=== PATIENT | female | born 1970 | race Hispanic/Latino ===

== ENCOUNTER 2017-05-14 18:07 | Emergency (ER) | payer MEDICAID, OTHER ==
[2017-05-14 18:07] VITALS: BMI 23.8
[2017-05-14 18:13] VITALS: RESP 18
--- NOTE | 2017-05-14 19:10 | C.PDOC ---
History Of Present Illness 46F comes in requesting detox from multiple substances: heroin, pcp, alcohol, cocaine, meth. when I let her know that are detox unit is full she says she is suicidal. hx of cutting and also plan of overdose on meds. Time Seen by Provider: 05/14/17 19:07 Chief Complaint (Nursing): Substance Abuse Past Medical History Vital Signs: Last Vital Signs Temp 98.8 F 05/14/17 18:10 Pulse 89 05/14/17 18:10 Resp 18 05/14/17 18:10 BP 137/80 05/14/17 18:10 Pulse Ox 98 05/14/17 20:28 - Medical History PMH: Anxiety, Asthma, Bipolar Disorder, Depression, Migraine, Mitral Valve Prolapse, Schizophrenia Denies: Diabetes, Hepatitis, HIV, HTN, Chronic Kidney Disease, Seizures, Sexually Transmitted Disease - [facility] Procedures APPLICATION OF SPLINT (04/21/14) ARTIF RUPT MEMBRANES NEC (04/09/99) CLOSURE SKIN & SUBCUTANEOUS NEC (04/21/14) DIATHER/CRYO TURBINECTOM (05/14/02) DPT ADMINISTRATION (04/21/14) IMMOBILIZ/WOUND ATTN NEC (08/12/14) INJECT/INFUSE NEC (06/16/15) LYSIS OF NASAL ADHESIONS (05/14/02) MANUAL ASSIST DELIV NEC (04/09/99) NASAL REPAIR NEC (12/18/00) NEBULIZER THERAPY (06/16/15) OPEN REDUCTION NASAL FX (12/18/00) RHINOPLASTY NEC (05/31/99) SEPTOPLASTY NEC (05/14/02) SUBMUC NASAL SEPT RESECT (12/18/00) TETANUS TOXOID ADMINIST (05/28/07) TURBINECTOMY NEC (04/28/98) Family History: States: Other Other Family History: nc - Social History Hx Tobacco Use: Yes Hx Alcohol Use: Yes Hx Substance Use: Yes (Stopped) - Immunization History Hx Tetanus Toxoid Vaccination: No Hx Influenza Vaccination: No Hx Pneumococcal Vaccination: No Review Of Systems Except As Marked, All Systems Reviewed And Found Negative. Constitutional: Negative for: Fever, Chills Cardiovascular: Negative for: Chest Pain Respiratory: Negative for: Cough, Shortness of Breath Gastrointestinal: Negative for: Vomiting, Abdominal Pain Neurological: Negative for: Weakness, Numbness Psych: Positive for: Anxiety, Depression, Suicidal ideation Physical Exam - Physical Exam Appears: Non-toxic, No Acute Distress Skin: Warm, Dry Head: Atraumatic Eye(s): bilateral: PERRL Nose: No Epistaxis Oral Mucosa: Moist Lips: No Swelling Cardiovascular: Rhythm Regular Respiratory: No Accessory Muscle Use, No Stridor Gastrointestinal/Abdominal: Soft, No Tenderness Neurological/Psych: Oriented x3, Other (no focal deficits) ED Course And Treatment - Laboratory Results Result Diagrams: 05/14/17 19:37 05/14/17 19:37 O2 Sat by Pulse Oximetry: 98 Medical Decision Making Medical Decision Making: EKG: NSR 70 normal axis and intervals, no acute STEMI 2024 per psych service pt is cleared for dc [address] Gillespie- he is aware of statements pt made to me. he is familiar with the pt and is comfortable w her being dc, she can likely get a detox bed tomorrow and the pt is agreeable to this plan. Disposition - Disposition Disposition: HOME/ ROUTINE Disposition Time: 20:32 Condition: STABLE - Clinical Impression Clinical Impression: Drug abuse
[2017-05-14 19:47] LABS: BASO # 0.1 K/uL (0.0-0.2); BASO % 0.9 % (0.0-2.0); EOS # 0.1 K/uL (0.0-0.7); EOS % 1.7 % (0.0-4.0); HEMOGLOBIN 11.4 g/dL (11.0-16.0); LYMPH # 2.6 K/uL (1.0-4.3); LYMPH % 37.2 % (20.0-40.0); MEAN CORPUSCULAR HEMOGLOBIN 23.6 pg (27.0-31.0); MEAN CORPUSCULAR HGB CONC 31.4 g/dL (33.0-37.0); MEAN PLATELET VOLUME 8.2 fL (7.2-11.7); MONO # 0.6 K/uL (0.0-0.8); MONO % 8.4 % (0.0-10.0); NEUT # 3.6 K/uL (1.8-7.0); NEUT % 51.8 % (50.0-75.0); NRBC % 0.1 % (0.0-2.0); RBC 4.84 Mil/uL (3.80-5.20); RED CELL DISTRIBUTION WIDTH 18.7 % (11.5-14.5); WHITE BLOOD COUNT 6.9 K/uL (4.8-10.8)
[2017-05-14 19:51] LABS: ALBUMIN 4.2 g/dL (3.5-5.0)
[2017-05-14 19:53] LABS: GFR AFRICAN-AMERICAN > 60; GFR NON-AFRICAN AMERICAN > 60
[2017-05-14 19:54] LABS: ALB/GLOB RATIO 1.3 (1.0-2.1); ALT/SGPT 34 U/L (9-52); AST/SGOT 28 U/L (14-36); BLOOD UREA NITROGEN 8 mg/dL (7-17); CALCIUM 9.4 mg/dl (8.6-10.4)
[2017-05-14 19:55] LABS: SALICYLATE < 1.0 mg/dL 1
[2017-05-14 19:56] LABS: ACETAMINOPHEN < 10.0 ug/mL (10.0-30.0)
[2017-05-14 20:00] LABS: BARBITURATES, UR NEGATIVE (NEGATIVE); BENZODIAZEPINES, UR NEGATIVE (NEGATIVE)
[2017-05-14 20:03] LABS: PHENCYCLIDINE, UR NEGATIVE (NEGATIVE)
[2017-05-14 20:09] LABS: SQUAMOUS EPITHIAL 1 /hpf (0-5); URINE BACTERIA OCC (<OCC); URINE BILIRUBIN NEGATIVE (NEGATIVE); URINE BLOOD NEGATIVE (NEGATIVE); URINE CLARITY Clear (Clear); URINE COLOR Yellow (YELLOW); URINE GLUCOSE (UA) NORMAL (Normal); URINE LEUKOCYTE ESTERASE 1+ Leu/uL (Negative); URINE NITRATE NEGATIVE (NEGATIVE); URINE PROTEIN NEGATIVE (NEGATIVE); URINE UROBILINOGEN NORMAL mg/dL (0.2-1.0)
[2017-05-14 20:11] LABS: HCG,QUALITATIVE URINE NEGATIVE (NEGATIVE)
[2017-05-14 20:22] LABS: OPIATES, UR POSITIVE (NEGATIVE)
[2017-05-14 20:39] VITALS: BP 163/84; PULSE 97; TEMP 97.8; O2SAT 95
--- NOTE | 2017-05-15 08:12 | RAD ---
PROCEDURE: CHEST RADIOGRAPH, 1 VIEW HISTORY: Detox/Psy COMPARISON: None available. FINDINGS: LUNGS: Mild venous congestion. PLEURA: No pneumothorax or pleural fluid seen. CARDIOVASCULAR: Normal. OSSEOUS STRUCTURES: No significant abnormalities. VISUALIZED UPPER ABDOMEN: Normal. OTHER FINDINGS: None. IMPRESSION: Mild venous congestion.
--- NOTE | 2017-05-16 15:48 | CARD ---
APPROVED REPORT EKG Measurement Heart [id number] <Conclusion> Normal sinus rhythm Poor R wave progression. Borderline ECG
== END 2017-05-14 20:54 | disposition home or self-care (01) ==
LOC: C.ER 18:07
DX: F19.10 Other psychoactive substance abuse, uncomplicated (principal); F10.10 Alcohol abuse, uncomplicated; Y90.2 Blood alcohol level of 40-59 mg/100 ml

== ENCOUNTER 2017-05-15 07:12 | Emergency (ER) | payer OTHER ==
[2017-05-15 07:17] VITALS: BMI 26.1
[2017-05-15 07:18] VITALS: BP 126/81; PULSE 82; RESP 18; TEMP 98.3; O2SAT 99
--- NOTE | 2017-05-15 07:36 | C.PDOC ---
History Of Present Illness 46 y/o female presents to ED requesting detox from multiple substances. Pt was here yesterday for the same, no detox beds were available, she was instructed to return today. Denies any SI, HI, chest pain, SOB, vomiting or any other complaints. Time Seen by Provider: 05/15/17 07:14 Chief Complaint (Nursing): Substance Abuse History Per: Patient History/Exam Limitations: no limitations Suicide/Self Injury Attempted (Context): None Severity: Mild Associated Symptoms: denies: Suicidal Thoughts Involuntary Hold By: None Recent travel outside of the [place]: No Past Medical History Reviewed: Historical Data, Nursing Documentation, Vital Signs Vital Signs: Last Vital Signs Temp 98.3 F 05/15/17 07:17 Pulse 82 05/15/17 07:17 Resp 18 05/15/17 07:17 BP 126/81 05/15/17 07:17 Pulse Ox 99 05/15/17 07:38 - Medical History PMH: Anxiety, Asthma, Bipolar Disorder, Depression, Migraine, Mitral Valve Prolapse, Schizophrenia - [facility] Procedures APPLICATION OF SPLINT (04/21/14) ARTIF RUPT MEMBRANES NEC (04/09/99) CLOSURE SKIN & SUBCUTANEOUS NEC (04/21/14) DIATHER/CRYO TURBINECTOM (05/14/02) DPT ADMINISTRATION (04/21/14) IMMOBILIZ/WOUND ATTN NEC (08/12/14) INJECT/INFUSE NEC (06/16/15) LYSIS OF NASAL ADHESIONS (05/14/02) MANUAL ASSIST DELIV NEC (04/09/99) NASAL REPAIR NEC (12/18/00) NEBULIZER THERAPY (06/16/15) OPEN REDUCTION NASAL FX (12/18/00) RHINOPLASTY NEC (05/31/99) SEPTOPLASTY NEC (05/14/02) SUBMUC NASAL SEPT RESECT (12/18/00) TETANUS TOXOID ADMINIST (05/28/07) TURBINECTOMY NEC (04/28/98) Family History: States: Unknown Family Hx - Social History Hx Tobacco Use: Yes Hx Alcohol Use: Yes Hx Substance Use: Yes (Stopped) - Immunization History Hx Tetanus Toxoid Vaccination: No Hx Influenza Vaccination: No Hx Pneumococcal Vaccination: No Review Of Systems Except As Marked, All Systems Reviewed And Found Negative. Constitutional: Negative for: Fever Cardiovascular: Negative for: Chest Pain Respiratory: Negative for: Shortness of Breath Gastrointestinal: Negative for: Vomiting Psych: Negative for: Suicidal ideation Physical Exam - Physical Exam Appears: Non-toxic, No Acute Distress Skin: Warm, Dry, No Rash Head: Atraumatic, Normacephalic Neck: Normal, Normal ROM Chest: Symmetrical Cardiovascular: Rhythm Regular, No Murmur Respiratory: Normal Breath Sounds, No Rales, No Rhonchi, No Wheezing Gastrointestinal/Abdominal: Normal Exam, Soft, No Tenderness Extremity: Bilateral: Atraumatic Neurological/Psych: Oriented x3, Normal Speech ED Course And Treatment O2 Sat by Pulse Oximetry: 99 (room air) Pulse Ox Interpretation: Normal Progress Note: No detox beds available at this time. CRISIS will speak to patient. Case discused and patient given outpatient information by Crisis department. Reassessment Condition: Unchanged Disposition - Disposition Referrals: Alcoholics Anonymous [Outside] [facility] [Outside] [facility] [Outside] [facility] [Outside] Disposition: HOME/ ROUTINE Disposition Time: 08:00 Condition: STABLE Instructions: Polysubstance Abuse (ED) - POA Present On Arrival: None - Clinical Impression Clinical Impression: Drug abuse, Alcohol abuse - PA / ICU REGISTERED NURSE / Resident Statement MD/DO has reviewed & agrees with the documentation as recorded. - Scribe Statement The provider has reviewed the documentation as recorded by the Scribcarlos Melchor All medical record entries made by the Scribe were at my direction and personally dictated by me. I have reviewed the chart and agree that the record accurately reflects my personal performance of the history, physical exam, medical decision making, and the department course for this patient. I have also personally directed, reviewed, and agree with the discharge instructions and disposition.
== END 2017-05-15 08:10 | disposition home or self-care (01) ==
LOC: C.ER 07:12
DX: F19.10 Other psychoactive substance abuse, uncomplicated (principal); F10.10 Alcohol abuse, uncomplicated; Y90.9 Presence of alcohol in blood, level not specified

== ENCOUNTER 2017-05-17 11:37 | Inpatient (IN) | payer MEDICAID, OTHER ==
[2017-05-17 11:38] VITALS: BMI 26.1
--- NOTE | 2017-05-17 11:59 | C.PDOC ---
History Of Present Illness 46 y/o FEMALE PRESENTS TO ED FOR POLYSUBSTANCE DETOX: HEROIN, COCAINE, AND METH. PT PRESCREENED DATA ENTRY ANALYST. DISCHARGED AT 7PM LAST NIGHT AND UPON BEING TOLD THERE WERE NO BEDS, CITED SUICIDAL IDEATION. CLEARED FOR DISCHARGE LAST NIGHT AND ADVISED TO RETURN TODAY FOR DETOX. PT STATES SHE HAD A DRINK AND SOME MORPHINE AT 0700 TODAY, DENIES ANY OTHER DRUG USE TODAY. CURRENTLY ASYMPTOTIC. Time Seen by Provider: 05/17/17 11:55 Chief Complaint (Nursing): Substance Abuse History Per: Patient History/Exam Limitations: no limitations Current Symptoms Are (Timing): Still Present Modifying Factor(s): Narcotics, Cocaine Recent travel outside of the [place]: No Past Medical History Reviewed: Historical Data, Nursing Documentation, Vital Signs Vital Signs: Last Vital Signs Temp 98.4 F 05/17/17 11:40 Pulse 87 05/17/17 11:40 Resp 18 05/17/17 11:40 BP 129/81 05/17/17 11:40 Pulse Ox 96 05/17/17 13:40 - Medical History PMH: Anxiety, Asthma, Bipolar Disorder, Depression, Migraine, Mitral Valve Prolapse, Schizophrenia - [facility] Procedures APPLICATION OF SPLINT (04/21/14) ARTIF RUPT MEMBRANES NEC (04/09/99) CLOSURE SKIN & SUBCUTANEOUS NEC (04/21/14) DIATHER/CRYO TURBINECTOM (05/14/02) DPT ADMINISTRATION (04/21/14) IMMOBILIZ/WOUND ATTN NEC (08/12/14) INJECT/INFUSE NEC (06/16/15) LYSIS OF NASAL ADHESIONS (05/14/02) MANUAL ASSIST DELIV NEC (04/09/99) NASAL REPAIR NEC (12/18/00) NEBULIZER THERAPY (06/16/15) OPEN REDUCTION NASAL FX (12/18/00) RHINOPLASTY NEC (05/31/99) SEPTOPLASTY NEC (05/14/02) SUBMUC NASAL SEPT RESECT (12/18/00) TETANUS TOXOID ADMINIST (05/28/07) TURBINECTOMY NEC (04/28/98) Family History: States: Unknown Family Hx - Social History Hx Tobacco Use: Yes Hx Alcohol Use: Yes Hx Substance Use: Yes (Stopped) - Immunization History Hx Tetanus Toxoid Vaccination: No Hx Influenza Vaccination: No Hx Pneumococcal Vaccination: No Review Of Systems Constitutional: Negative for: Fever, Chills Cardiovascular: Negative for: Chest Pain Respiratory: Negative for: Cough, Shortness of Breath Gastrointestinal: Negative for: Vomiting, Diarrhea Skin: Negative for: Rash Psych: Negative for: Suicidal ideation, Withdrawal Physical Exam - Physical Exam Appears: Non-toxic, No Acute Distress, Other (NO ACUTE WD OR INTOX SYMPTOMS) Skin: Normal Color, Warm, Dry Head: Atraumatic, Normacephalic Oral Mucosa: Moist Neck: Supple Chest: Symmetrical Cardiovascular: Rhythm Regular Respiratory: Normal Breath Sounds, No Rales, No Rhonchi, No Wheezing Gastrointestinal/Abdominal: Soft, No Tenderness, No Guarding, No Rebound Back: Normal Inspection Extremity: Normal ROM, Capillary Refill (< 2SEC. ) Neurological/Psych: Oriented x3, Normal Speech, Normal Cognition ED Course And Treatment - Laboratory Results Result Diagrams: 05/17/17 12:52 05/17/17 12:52 O2 Sat by Pulse Oximetry: 96 (RA) Pulse Ox Interpretation: Normal Progress - Re-Evaluation Re-evaluation Note: 05/17/17 13:40 MED CLEAR FOR PSYCH EVAL - Data Reviewed Data Reviewed: Lab, Old records Disposition - Disposition Disposition: HOSPITALIZED Disposition Time: 14:17 Condition: STABLE - POA Present On Arrival: None - Clinical Impression Clinical Impression: Severe opioid dependence - Scribe Statement The provider has reviewed the documentation as recorded by the [place] [place] Attestation: All medical record entries made by the Scribe were at my direction and personally dictated by me. I have reviewed the chart and agree that the record accurately reflects my personal performance of the history, physical exam, medical decision making, and the department course for this patient. I have also personally directed, reviewed, and agree with the discharge instructions and disposition. Decision To Admit - Pt Status Changed To: Hospital Disposition Of: Inpatient - Admit Certification Admit to Inpatient:: After my assessment, the patient will require hospitalization for at least two midnights. This is because of the severity of symptoms shown, intensity of services needed, and/or the medical risk in this patient being treated as an outpatient. - InPatient: Physician Admission Certification: I certify that this patient requires 2 or more midnights of care for the following reason:: SEE NOTE - . Bed Request Type: Psychiatry Admitting Physician: Gita Gillespie Patient Diagnosis: Severe opioid dependence
[2017-05-17 12:57] LABS: BASO # 0.1 K/uL (0.0-0.2); BASO % 0.7 % (0.0-2.0); EOS # 0.1 K/uL (0.0-0.7); EOS % 1.3 % (0.0-4.0); HEMOGLOBIN 11.4 g/dL (11.0-16.0); LYMPH # 2.1 K/uL (1.0-4.3); LYMPH % 26.9 % (20.0-40.0); MEAN CELL VOLUME 75.3 fL (81.0-99.0); MEAN CORPUSCULAR HEMOGLOBIN 24.3 pg (27.0-31.0); MEAN CORPUSCULAR HGB CONC 32.3 g/dL (33.0-37.0); MEAN PLATELET VOLUME 7.8 fL (7.2-11.7); MONO # 0.4 K/uL (0.0-0.8); MONO % 4.7 % (0.0-10.0); NEUT # 5.2 K/uL (1.8-7.0); NEUT % 66.4 % (50.0-75.0); RBC 4.68 Mil/uL (3.80-5.20); RED CELL DISTRIBUTION WIDTH 18.8 % (11.5-14.5); WHITE BLOOD COUNT 7.8 K/uL (4.8-10.8)
[2017-05-17 13:04] LABS: SQUAMOUS EPITHIAL 2 /hpf (0-5); URINE BACTERIA OCC (<OCC); URINE BILIRUBIN NEGATIVE (NEGATIVE); URINE BLOOD NEGATIVE (NEGATIVE); URINE CLARITY Clear (Clear); URINE COLOR Yellow (YELLOW); URINE GLUCOSE (UA) NORMAL (Normal); URINE LEUKOCYTE ESTERASE NEG Leu/uL (Negative); URINE NITRATE NEGATIVE (NEGATIVE); URINE PROTEIN NEGATIVE (NEGATIVE); URINE UROBILINOGEN NORMAL mg/dL (0.2-1.0)
[2017-05-17 13:05] LABS: ALBUMIN 3.9 g/dL (3.5-5.0)
[2017-05-17 13:08] LABS: ALB/GLOB RATIO 1.3 (1.0-2.1); ALT/SGPT 30 U/L (9-52); AST/SGOT 22 U/L (14-36); BLOOD UREA NITROGEN 4 mg/dL (7-17); CALCIUM 8.7 mg/dl (8.6-10.4); GFR AFRICAN-AMERICAN > 60; GFR NON-AFRICAN AMERICAN > 60
[2017-05-17 13:09] LABS: BENZODIAZEPINES, UR NEGATIVE (NEGATIVE)
[2017-05-17 13:11] LABS: BARBITURATES, UR NEGATIVE (NEGATIVE)
[2017-05-17 13:13] LABS: OPIATES, UR NEGATIVE (NEGATIVE)
[2017-05-17 13:14] LABS: PHENCYCLIDINE, UR NEGATIVE (NEGATIVE)
[2017-05-17] MEDS ORDERED: Aluminum Hydroxide/Magnesium Hydroxide Susp (30 mL) PO PRN (14:32)
--- NOTE | 2017-05-17 16:48 | PCM.BM ---
<María Elena Strauss M - Last Filed: 05/17/17 16:45> Treatment Plan Problems - Problems identified on initial assessmt Polysubstance Addiction Date Initiated: 05/17/17 Time Initiated: 16:45 Assessment reference: NA Status: Active Treatment assets and liabiliti Patient Assests: ADL independent Patient Liabilities: live alone, substance abuse, legal issue - Milieu Protocol Maintain good personal hygiene: daily Encourage regular showers, daily Remind patient to perform daily oral care, daily Assist patient to perform ADL's (PRN) Maintain personal safety: every shift Educate patient to report safety concerns to staff, every shift Monitor environment for contraband/sharps Medication safety: Monitor for expected outcome, potential side effects: every shift, Assess barriers to learning: every shift, Assess readiness for medication education: every shift <Sadia Yanez - Last Filed: 05/19/17 10:38> Family Contact Family involvement: Family/SO is involved Family contact: Patient agrees to contact Family contact name: Yolanda Wheeler Family contacted how many times per week?: 1 Family contact comment: "I wanna bring my sister in some clothes and help with her aftercare". - Goals for Treatment Patient goals for treatment: Complete ASI. DIscuss aftercare request of LTR. Coordinate with DCPP. Patient's family/SO goals for treatment: See patient transition to LTR. Discharge/Continuing Care - Education Needs Education Needs: Patient Diagnosis/Disease Process, Patient Coping Skills, Patient Placement options, Patient Community resources - Discharge Discharge Criteria: Tolerates medication w/o severe side effects, Normal sleep pattern, No longer exhibiting s/s of withdrawal, Reduction of target symptoms Discharge to:: Substance Abuse Rehab - Treatment Team Participation Patient/Family/SO Statement: 05/19/17 10:37 "I wanna go to rehab for at least 3 months. Anything else is just a band-aid for me..." Discussed with Family/SO: Yes Was Patient/Family/SO present at Treatment Team Meeting: Yes
--- NOTE | 2017-05-18 09:01 | PCM.PSYCH ---
Initial Psychiatric Evaluation - Initial Psychiatric Evaluation Type of Admission: Voluntary Legal Status: Capacity Chief Complaint (in patient's own words): I came in to get help.' History of Present Illness and Precipitating Events: Patient is a 46 years old HF, who currently lives alone, on SSI with the history of opiate abuse, cocaine abuse, Xanax abuse and bipolar disorder came to the ED to get help in heroin detox. As per the patient she was sober for 13 and half years, until last year when her parents were killed in a road accident. Pt became increasingly irritable and relapsed on cocaine, heroin and Xanax. She started injecting 6-10 bags of heroin, $60-100 dollars of cocaine and 2-4 mg of Xanax. Yesterday she injected almost 7 bags of heroin, and $30 of cocaine, started developing withdrawal symptoms so came to the to get help in detox. Patient reports withdrawal symptoms, i.e, headache, anxiety, nausea, abdominal cramps, joint pains and sweating. Patient reports irritability and anxiety but denies any feelings of hopelessness or helplessness, denies any suicidal ideation or homicidal ideation. She denies any hallucinations, delusions or any psychotic symptoms. She reports agitation but denies any manic symptoms. She denies any other substance abuse. Past medical history: Asthma Past psychiatric history: Patient denies any history of inpatient psychiatric hospitalizations but reports history of follow-up with a psychiatrist at [facility] in the past. Patient denies any history of suicidal ideation or suicidal attempt but reports a long history of superficial cuts in the past. Patient reports history of auditory and visual hallucinations in the past Current Medications: Active Medications Generic Name Dose Route Start Last Admin Trade Name Freq PRN Reason Stop Dose Admin Al Hydrox/Mg Hydrox/Simethicone 30 ml 05/17/17 14:32 Maalox 30 Ml PO TID PRN Indigestion / Heartburn Albuterol 1 puff 05/17/17 14:30 Ventolin Hfa 90 Mcg/Actuation (8 G) INH RQ4 PRN SOB Clonidine HCl 0.1 mg 05/17/17 14:32 Catapres PO Q8 PRN COWS Score More or Equal to 5 Gabapentin 100 mg 05/17/17 18:00 05/17/17 18:45 Neurontin PO 100 mg TID CLEMENTE Administration Hydroxyzine HCl 50 mg 05/17/17 14:30 05/17/17 18:45 Atarax PO 50 mg Q6H PRN Administration Anxiety Ibuprofen 600 mg 05/17/17 14:30 Motrin Tab PO Q6H PRN Pain, moderate (4-7) Loperamide HCl 2 mg 05/17/17 14:32 Imodium PO Q8 PRN Diarrhea Ondansetron HCl 4 mg 05/17/17 14:32 Zofran Tab PO Q8 PRN Nausea/Vomiting Trazodone HCl 100 mg 05/17/17 22:00 05/17/17 21:44 Desyrel PO 100 mg HS CLEMENTE Administration Past Psychiatric History - Past Psychiatric History Previous Treatment History: Inpatient Pertinent Medical Hx (Current Medical&Sleep Prob, Allergies): Allergies Allergy/AdvReac Type Severity Reaction Status Date / Time Penicillins AdvReac ITCHING Verified 05/17/17 11:40 Albuterol HFA [Ventolin HFA 90 mcg/actuation (8 g)] 05/17/17 Methylphenidate HCl [Ritalin] 20 mg PO TID 05/17/17 Prilosec Otc 05/17/17 traZODone [trazodone Hydrochloride] 2 tab PO DAILY 05/17/17 Review of Systems - Review of Systems All systems: reviewed and no additional remarkable complaints except - Psychiatric Psychiatric: Anxiety, Irritability. absent: Suicidal Ideation Mental Status Examination - Personal Presentation Personal Presentation: Looks stated age - Affect Affect: Constricted - Motor Activity Motor Activity: Calm - Reliability in Providing Information Reliability in Providing Information: Good - Speech Speech: Organized - Mood Mood: Anxious - Formal Thought Process Formal Thought Process: No Impairment - Obsessions/Compulsions Obsessions: No Compulsions: No - Cognitive Functions Orientation: Person, Place, Situation, Time Sensorium: Alert Attention/Concentration: Attentive Abstract Thinking: [place] Estimate of Intelligence: Below average Judgement: Imparied, as evidence by: Poor judgement, Intact, as evidence by: Insight regarding need for hospitalization - Risk Risk: Withdrawal, Diminished functioning - Strength & Assets Inventory Strength & Assets Inventory: Cooperative DSM 5 DX - DSM 5 DSM 5 Diagnosis: Opioid use disorder severe Opioid withdrawal Sedative/Hypnotics use moderate Cocaine use disorder severe Bipolar disorder - Recommended/Plan of Treatment Treatment Recommendations and Plan of Treatment: Opioid use disorder severe CBT Psychoeducation Supportive therapy, individual therapy Use [place] for abstinence Opioid withdrawal CBT Psychoeducation Supportive therapy, individual therapy Clonidine when necessary Methadone taper Sedative/Hypnotics use moderate CBT Psychoeducation Supportive therapy, individual therapy Use [place] for abstinence Cocaine use disorder severe Monitor signs and symptoms Use [place] for abstinence Bipolar disorder CBT Psychoeducation Supportive therapy, group therapy, individual therapy Neurontin 100 mg by mouth 3 times a day Trazodone 100 mg by mouth daily at bedtime Asthma Monitor s/s - Smoking Cessation Smoking Cessation Initiated: No
--- NOTE | 2017-05-19 10:18 | PCM.PYCHPN ---
Psychiatric Progress Note - Psychiatric Progress Note Patient seen today, length of contact: 15 min Patient Chief Complaint: I came in to get help.' Problems Identified/Issues Discussed: Patient seen and evaluated, chart reviewed and discussed with the nurse. The patient reports irritability and agitation. She reports withdrawal symptoms including abdominal cramps, back pain, anxiety, and sweating. She is tolerating the detox protocol medications and denies depressive, manic or psychotic symptoms. She denies any side effects of the medications. Supportive therapy and psychoeducation were given. Medication Change: Yes (Methadone taper) Medical Record Reviewed: Yes Mental Status Examination - Cognitive Function Orientation: Person, Place, Situation, Time Memory: Intact Attention: WNL Concentration: Poor Association: WNL Fund of Knowledge: Poor - Mood Mood: Anxious - Affect Affect: Constricted - Speech Speech: Soft - Formal Thought Process Formal Thought Process: No Impairment - Suicidal Ideation Suicidal Ideation: No - Homicidal Ideation Homicidal Ideation: No Goal/Treatment Plan - Goal/Treatment Plan Need for Continued Stay: Discharge may exacerbated symptoms, Severe functional impairment Progress Toward Problem(s) and Goals/Treatment Plan: Opioid use disorder severe CBT Psychoeducation Supportive therapy, individual therapy Use [place] for abstinence Opioid withdrawal CBT Psychoeducation Supportive therapy, individual therapy Clonidine when necessary Methadone taper Sedative/Hypnotics use moderate CBT Psychoeducation Supportive therapy, individual therapy Use [place] for abstinence Cocaine use disorder severe Monitor signs and symptoms Use [place] for abstinence Bipolar disorder CBT Psychoeducation Supportive therapy, group therapy, individual therapy Neurontin 300 mg by mouth 3 times a day Trazodone 100 mg by mouth daily at bedtime Asthma Monitor s/s - Smoking Cessation Smoking Cessation Initiated: No
--- NOTE | 2017-05-20 11:40 | PCM.PYCHPN ---
Psychiatric Progress Note - Psychiatric Progress Note Patient seen today, length of contact: 16 min Patient Chief Complaint: 'I came in to get help' Problems Identified/Issues Discussed: Patient seen and evaluated, chart reviewed and discussed with the nurse. The patient reports that she is doing better but still have some feelings of irritability and agitation. She denies any withdrawal symptoms. She is tolerating the detox protocol medications and denies depressive, manic or psychotic symptoms. She denies any side effects of the medications. Supportive therapy and psychoeducation were given. Medication Change: Yes (Methadone taper) Medical Record Reviewed: Yes Mental Status Examination - Cognitive Function Orientation: Person, Place, Situation, Time Memory: Intact Attention: WNL Concentration: Poor Association: WNL Fund of Knowledge: Poor - Mood Mood: Anxious - Affect Affect: Constricted - Speech Speech: Soft - Formal Thought Process Formal Thought Process: No Impairment - Suicidal Ideation Suicidal Ideation: No - Homicidal Ideation Homicidal Ideation: No Goal/Treatment Plan - Goal/Treatment Plan Need for Continued Stay: Discharge may exacerbated symptoms, Severe functional impairment Progress Toward Problem(s) and Goals/Treatment Plan: Continue taper Continue meds, both standing and prn HI and CBT Attend groups and activities
[2017-05-20 15:30] VITALS: RESP 18
[2017-05-21] MEDS: Albuterol HFA 90 mcg/actuation (8 g) INH PRN ×2 (09:26→15:48)
--- NOTE | 2017-05-21 14:19 | PCM.PYCHPN ---
Psychiatric Progress Note - Psychiatric Progress Note Patient seen today, length of contact: 15 min Patient Chief Complaint: "I'm anxious" Problems Identified/Issues Discussed: Patient seen and evaluated, chart reviewed and discussed. Supportive therapy and psychoeducation were given. PA used After care discussed, MAT recommended Anxiety mgt discussed Medication Change: Yes (Methadone taper) Medical Record Reviewed: Yes Mental Status Examination - Cognitive Function Orientation: Person, Place, Situation, Time Memory: Intact Attention: WNL Concentration: Poor Association: WNL Fund of Knowledge: Poor - Mood Mood: Anxious - Affect Affect: Constricted - Speech Speech: Soft - Formal Thought Process Formal Thought Process: No Impairment - Suicidal Ideation Suicidal Ideation: No - Homicidal Ideation Homicidal Ideation: No Goal/Treatment Plan - Goal/Treatment Plan Need for Continued Stay: Discharge may exacerbated symptoms, Severe functional impairment Progress Toward Problem(s) and Goals/Treatment Plan: Detox ending Continue meds, both standing and prn PA and CBT Attend groups and activities Will start [facility] tomorrow Estimated Date of D/C: 05/22/17
[2017-05-22 08:11] VITALS: BP 125/63; PULSE 80; TEMP 98.2; O2SAT 100
--- NOTE | 2017-05-22 08:42 | PCM.PYCHDC ---
Mental Status Examination - Mental Status Examination Orientation: Person, Place, Situation, Time Memory: Intact Mood: Anxious Affect: Broad Speech: Appropriate Attention: WNL Concentration: WNL Association: WNL Fund of Knowledge: WNL Formal Thought Process: No Impairment Suicidal Ideation: No Current Homicidal Ideation?: No Discharge Summary - Discharge Note Reason for Hospitalization: heroin detox Consultations:: List each consultation separately and include: 1. Reason for request. 2. Findings. 3. Follow-up Summary of Hospital Course include:: 1. Description of specific treatment plan utilized for patients during their course of treatmen. 2. Summarize the time- course for resolution of acute symptoms and/or regressed behaviors. 3. Describe issues identified and worked on during hospitalization. 4. Describe medication utilized. 5. Describe medical problems identified and treated. 6. Reassessment of suicide risk Summary of Hospital Course: The pt was admitted and started on treatment with psychotherapy, support, psychoeducation and medications. [place] and CBT used. The pt attended groups and activities, as well as milieu therapy. All the risks and benefits of medications are discussed and the patient understood and agreed. The pt improved with the treatments provided. After care discussed with the patient. She is accepted by [facility] - Final Diagnosis (DSM 5) Condition upon Discharge: STABLE DSM 5: Opioid use disorder severe Opioid withdrawal Sedative/Hypnotics use moderate Cocaine use disorder severe Bipolar disorder Disposition: REHAB FACILITY/REHAB UNIT Follow-up Treatment Plan: Continue below medications after discharge. Follow after care plan as discussed at [facility] Consider IOP and MAt afterwards Use relapse prevention skills Return to ER or call 911 if suicidal, homicidal or symptoms relapse. Stay away from stress, alcohol and drugs. See primary doctor once a year. Prescriptions/Medication Reconciliation: Gabapentin [Neurontin] 300 mg PO TID #90 cap hydrOXYzine HCl [Atarax] 50 mg PO Q8 #60 tab traZODone [Desyrel] 100 mg PO HS #30 tab - Smoking Cessation Smoking Cessation Medication prescribed: No - Antipsychotic Medications Pt discharged on 2 or more routine antipsychotic medications: No
== END 2017-05-22 09:00 | DRG 745 ==
LOC: C.ER 11:37 → C.7D 14:18
PROVIDERS: ADMIT Psychiatry & Neurology Psychiatry; ATTEND Psychiatry & Neurology Psychiatry
PROC: HZ2ZZZZ Detoxification Services for Substance Abuse Treatment (ICD-10-PCS; principal; 2017-05-17)
PROC: HZ81ZZZ Medication Management for Substance Abuse Treatment, Methadone Maintenance (ICD-10-PCS; 2017-05-17)
PROC: HZ59ZZZ Individual Psychotherapy for Substance Abuse Treatment, Supportive (ICD-10-PCS; 2017-05-17)
PROC: GZ3ZZZZ Medication Management (ICD-10-PCS; 2017-05-17)
PROC: GZHZZZZ Group Psychotherapy (ICD-10-PCS; 2017-05-17)
PROC: GZ56ZZZ Individual Psychotherapy, Supportive (ICD-10-PCS; 2017-05-17)
DX: F11.23 Opioid dependence with withdrawal (principal); F31.9 Bipolar disorder, unspecified; F13.10 Sedative, hypnotic or anxiolytic abuse, uncomplicated; F14.10 Cocaine abuse, uncomplicated; F17.210 Nicotine dependence, cigarettes, uncomplicated; J45.909 Unspecified asthma, uncomplicated; I34.1 Nonrheumatic mitral (valve) prolapse